=== PATIENT | male | born 1945 | race Caucasian/White ===

== ENCOUNTER 2016-11-07 06:35 | Day surgery (SDC) | payer MEDICARE, OTHER ==
[~2016-11-07 06:35] MED LIST: Buffered Lidocaine 0.9% SYRIN* 5 ML/SYR SYRINGE INTRADERM ONE; Sodium Citrate/Citric Acid* 15 ML UDC PO ONE
[2016-11-07] MEDS ORDERED: ceFAZolin 2 GM PREMIX (*) 50 ML IVPB ONE (06:49)
[2016-11-07] MEDS ORDERED: Sodium Citrate/Citric Acid* 15 ML UDC ONE (07:05)
[2016-11-07] MEDS ORDERED: Bupivacaine 0.25% EPI 200,000* 30 ML SDV ONE (07:17)
[2016-11-07] MEDS ORDERED: Bupivacaine 0.25% SDV* 30 ML ONE (07:17)
[2016-11-07] MEDS ORDERED: Propofol* 10 MG/ML 20 ML BTL IV PUSH ONE (07:32)
[2016-11-07] MEDS ORDERED: Lidocaine 2% PF * 5 ML VIAL ONE (07:32)
[2016-11-07] MEDS ORDERED: fentaNYL* 50 MCG/ML 2 ML VIAL (100 MCG VIAL) ONE (07:33)
[2016-11-07] MEDS ORDERED: Ondansetron INJ* 2 MG/ML VIAL IV PRN (07:34)
[2016-11-07] MEDS ORDERED: fentaNYL* 50 MCG/ML 2 ML VIAL (100 MCG VIAL) IV PRN (07:34)
[2016-11-07] MEDS ORDERED: Ketorolac INJ* 30 MG/ML 1 ML VIAL IV PRN (07:34)
[2016-11-07] MEDS ORDERED: EPHEDrine (Pressors)* 50 MG/ML VIAL ONE (08:36)
[2016-11-07] MEDS ORDERED: methylPREDNISolone ACETATE 80* 80 MG/ML 1 ML VIAL ONE (08:43)
[2016-11-07 09:45] VITALS: BP 125/77
--- NOTE | 2016-11-07 15:39 | OP ---
DATE OF OPERATION: 11/07/16 - [facility] DATE OF : 49. SURGEON: Dada Campa MD. ASSISTANTS: NIDA Shabazz. Clinical Rn Manager was needed for the entirety of the case to help with positioning, retraction, and was utilized throughout all portions of the case. ANESTHESIOLOGIST: Dr. Dove. ANESTHESIA: General. PRE-OP DIAGNOSIS: Left knee medial meniscus tear. POST-OP DIAGNOSIS: Left knee medial meniscus tear as well as lateral meniscus tear and synovitis anteriorly, medially, and laterally. OPERATIVE PROCEDURE: Left knee arthroscopy with: 1. Partial medial meniscectomy. cpt 14927 2. Partial lateral meniscectomy. cpt 91656 3. Medial femoral condyle chondroplasty. cpt 84175 4. Synovectomy with plica excision of the anteromedial and anterolateral compartments.cpt 79693 5. Intraarticular injection of 80 mg of Depo-Medrol. COMPLICATIONS: None. ESTIMATED BLOOD LOSS: Minimal. INDICATIONS: Jones Hoang is a 71-year-old gentleman who has had left knee pain for several months. He has failed conservative management including physical therapy and injection. He had an MRI recently that demonstrated a displaced medial meniscus tear. After extensive discussion of the risks and benefits of operative versus nonoperative treatment and having inability of returning to his activities of daily living, he elected to proceed with knee arthroscopy with meniscus surgery. Risks and benefits were discussed at length and included, but are not limited to bleeding, infection, damage to nerves, vessels, surrounding structures, wound nonhealing, persistent pain, need for further surgery, risk of anesthesia, scarring, persistent pain, stiffness, incomplete relief of symptoms, need for further surgery, risk of DVT, and risk of anesthesia. DESCRIPTION OF PROCEDURE: The patient was greeted in the preoperative area by the attending surgeon. The correct extremity was marked and consent was confirmed. The patient was brought back to the operative suite where he was placed in supine position on operating table. He then underwent general anesthesia with LMA intubation and an unsterile tourniquet was placed high on the proximal thigh. The lateral post was positioned. The left leg was then prepped and draped in usual sterile fashion beginning with chlorhexidine soap scrub, and alcohol wipe, and a final prep with ChloraPrep. After appropriate surgical pause indicating side, site, procedure, and administration of antibiotics, the standard abigail-lateral portal was made sharply with an 11 blade. The scope was introduced through the joint. The joint was examined. There was abundant hyperemia and erythematous tissue present. There was plicae along the medial aspect as well as laterally; they were very hyperemic. The patellofemoral joint had grade 0 to 1 changes with no unstable flaps. The medial femoral condyle had small areas of grade 1 to 2 changes with small areas of mild fraying. The scope was brought into the notch. The ACL and PCL were visualized and had abundant erythema and inflammation. The electrocautery device was used to help perform a synovectomy of the medial and lateral compartments. Once the excess synovium was removed, attention was directed to the medial compartment. There was again a small area of grade 1 to 2 changes, but the vast majority of the medial femoral condyle had grade 1 changes. Medial tibial plateau had grade 1 changes. There was an unstable parrot beak tear of the medial meniscus apparent that was unstable. This was then debrided back using biters and iona with care try to protect the medial femoral condyle cartilage. Once this was removed, attention was directed to the lateral compartment where there was mild fraying of the body of the meniscus. This was debrided back using the shaver. The lateral femoral condyle had grade 1 changes to the plateau and lateral femoral condyle. The knee was then placed in full extension. The remainder of the synovectomy was done even changing portals, so that there was less friction in the lateral femoral condyles. The shaving device as well as electrocautery device was used to remove the excess bands of soft tissue. Electrocautery was used to obtain hemostasis. All fluid and debris was removed from the knee. The knee was cycled several times and thoroughly lavaged. Final images were obtained. The wounds were then closed with 3-0 nylon. Sterile dressings were applied, 80 mg of Depo-Medrol and 30 mL of 0.25% of Marcaine plain was then injected intraarticularly into the knee. A Cryo/Cuff was placed. He was awoken from anesthesia and transferred to PACU in stable condition. POSTOPERATIVE PLAN: He will be weightbearing as tolerated. He will be allowed to work on range of motion immediately. He will be discharged on pain medication. He is unable to take antiinflammatories due to his GERD and so we will monitor him closely. I will see him back in 10 to 14 days. [id number]/[facility] #: [id number] [facility]
== END 2016-11-07 09:57 | disposition home or self-care (01) ==
LOC: OREAST 06:35
PROVIDERS: ATTEND Orthopaedic Surgery
DX: M23.204 Derangement of unspecified medial meniscus due to old tear or injury, left knee (principal); M23.201 Derangement of unspecified lateral meniscus due to old tear or injury, left knee; M65.852 Other synovitis and tenosynovitis, left thigh; Z85.46 Personal history of malignant neoplasm of prostate; I10 Essential (primary) hypertension; M19.90 Unspecified osteoarthritis, unspecified site
CPT/HCPCS: A9270-GY; J0690; J1040; J2704; J3010

== ENCOUNTER 2017-05-18 06:21 | Inpatient (IN) | payer MEDICARE ==
--- NOTE | 2017-05-15 03:56 | HP ---
HISTORY AND PHYSICAL: DATE OF ADMISSION: 05/18/17 DATE OF SURGERY: 05/18/17 DATE OF H AND P: 05/12/17 SURGEON: Angi Denton MD * (dictated by NIDA Lopez) PROCEDURE: Left total knee replacement. CHIEF COMPLAINT: Left knee pain. HISTORY OF PRESENT ILLNESS: Mr. Hoang is a 71-year-old gentleman with over 6 months of severe left knee pain. Six months ago, he underwent an arthroscopy with Dr. Campa for a meniscal tear and did well for a few weeks before developing increasing medial joint pain. He did have an MRI at his last visit, which showed a large osteochondral defect of the medial femoral condyle. This was discussed in his last appointment, it is concerning that the joint line breakdown rapidly over the next 6 to 12 months. The patient is also unhappy with this current quality of life and chronic pain with chronic swelling and inability to participate in his hobbies and usual activities. He has failed conservative treatment with anti- inflammatories, pain medications, intra- articular injection, and physical therapy and would like to proceed with a left total knee replacement and presents today for an H and P of the same. He did have preoperative clearance from his primary care physician. He is also having a stress test with his personal carer, Dr. Vallecillo, on 05/15/17 prior to his surgery and will be seen on 05/16/17 by cardiology to discuss the results. PAST MEDICAL HISTORY: Significant for left knee arthritis and osteochondritis, left knee osteoarthritis, abnormal EKG history, spinal stenosis of the lumbar spine, hypertension, cardiomyopathy, prostate cancer, left bundle branch block. He denies any history of DVT or PE. PAST SURGICAL HISTORY: Significant for prostate surgery in 2002, lumbar spine surgery in 2015, left knee arthroscopy in October 2016. MEDICATIONS: He is currently taking metoprolol 50 mg daily losartan 15 mg daily. ALLERGIES: 1. LISINOPRIL. 2. ALTACE. FAMILY MEDICAL HISTORY: Significant for a brother with lung cancer and a sister with brain cancer. Father with prostate cancer and mother with a stroke. SOCIAL HISTORY: The patient lives with his . 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 He denies any tobacco or recreational drug use. He drinks about 4 alcoholic beverages per week. He is normally very active and likes to play golf. He is right-hand dominant. REVIEW OF SYSTEMS: Positive for his presenting complaint. It is negative for fevers, chills, chest pain, shortness of breath, nausea, vomiting, headache, dizziness as well as urinary urgency, palpitations. A 14-point review of systems was negative. PHYSICAL EXAMINATION GENERAL: The patient is a well-nourished, well-developed male, in no acute distress. Alert and oriented x3 with pleasant mood and normal affect. He has an antalgic gait favoring the left knee. VITAL SIGNS: Height 72 inches, pulse 62, blood pressure 138/82, respirations 16 , temperature 97.5. Pain level 4/10. HEENT: Normocephalic, atraumatic. Pupils are equally round and reactive to light and accommodation. Extraocular movements are intact. NECK: Supple. No palpable cervical lymph nodes. Thyroid is smooth and nontender. PULMONARY: Lungs clear to auscultation bilaterally with no wheezes, rales, or rhonchi. CARDIAC: Regular rate and rhythm. I did not appreciate any murmurs, rubs, or gallops. He had no pedal edema. 2+ DP pulses bilaterally. EXTREMITIES: Left lower extremity, the patient's skin is intact. No abrasions or open wound. Moderate effusion at the knee joint. Tenderness along the medial joint line of the knee. No varus or valgus pain or instability. Range of motion is from 10 to 120 degrees of flexion. Negative Elle, 5/5 ankle dorsiflexion and plantar flexion strength. Full sensation to light touch in all nerve distributions, 2+ palpable DP pulse. STUDIES: No new studies were collected today. Previous x-ray showed degenerative changes with some joint space narrowing. Subchondral sclerosis and mildly evident OCD along the medial femoral condyle, degenerative changes in the medial and patellofemoral compartments. The MRI again showed an OCD to the effect of the medial femoral condyle. Medial joint space and patellofemoral joint space showed degenerative changes. IMPRESSION: Mr. Hoang is a 71-year-old gentleman with medial femoral condyle OCD lesion as well as medial joint space and patellofemoral joint space narrowing. He is an appropriate candidate for a left total knee arthroplasty. PLAN: Mr. Hoang is scheduled to undergo left total knee arthroplasty with Dr. Denton on 05/18/17. He will return to clinic in about 10 days postop for followup and suture removal. He will use Coumadin for DVT prophylaxis. Prescription for pain management will be prescribed prior to discharge from hospital and I-STOP will be checked prior to sending script. NIDA LOPEZ [id number]/[facility] #: [id number] [place]
--- NOTE | 2017-05-15 09:29 | HP ---
H&P (Free Text) History and Physical: Addendum to H&P by Emily Maldonado PA-C from 05/12/17. Dr. Stahl stated that due to scar tissue from previous prostate surgery, Dr. Stahl would start the washington catheter. Jones will have washington catheter placement by Dr. Stahl in the OR prior to left TKA on 05/18/17.
[~2017-05-18 06:21] MED LIST changes: +Acetaminophen IV 1GM/100ML * 1,000 MG/100 ML VIAL IVPB ONE; +Famotidine IV* 10 MG/ML 2 ML (20 mg) IV ONE; +Gabapentin CAP(*) 300 MG PO ONE; +Ketorolac INJ* 30 MG/ML 1 ML VIAL IV ONE; +Metoclopramide TAB* 10 MG PO ONE; -Sodium Citrate/Citric Acid* 15 ML UDC PO ONE
[2017-05-18] MEDS ORDERED: Famotidine IV* 10 MG/ML 2 ML (20 mg) ONE (06:26)
[2017-05-18] MEDS ORDERED: Gabapentin CAP(*) 300 MG ONE (06:26)
[2017-05-18] MEDS ORDERED: Metoclopramide TAB* 10 MG ONE (06:27)
[2017-05-18] MEDS ORDERED: ceFAZolin 2 GM in 100 MLS NS (*) BAG IVPB ONE (06:27)
[2017-05-18] MEDS ORDERED: Ketorolac INJ* 30 MG/ML 1 ML VIAL ONE ×2 (06:27→06:37)
[2017-05-18] MEDS ORDERED: Buffered Lidocaine 0.9% SYRIN* 5 ML/SYR SYRINGE ONE (06:27)
[2017-05-18] MEDS ORDERED: Acetaminophen IV 1GM/100ML * 100 ML ONE (06:31)
[2017-05-18] MEDS ORDERED: fentaNYL* 50 MCG/ML 2 ML VIAL (100 MCG VIAL) ONE ×2 (06:37→07:21)
[2017-05-18] MEDS ORDERED: ROPIVACAINE 5 MG/ML 30 ML BTL (0.5%) ONE (06:37)
[2017-05-18] MEDS ORDERED: Midazolam* 1 MG/ML 10 ML VIAL (10 MG) ONE (06:37)
[2017-05-18] MEDS ORDERED: Propofol* 10 MG/ML 20 ML BTL IV PUSH ONE (06:37)
[2017-05-18] MEDS ORDERED: Lidocaine 2% PF * 5 ML VIAL ONE (06:37)
[2017-05-18] MEDS ORDERED: KETAMINE HCL* 50 MG/ML 10 ML VIAL ONE (06:37)
[2017-05-18] MEDS ORDERED: Ondansetron INJ* 2 MG/ML VIAL ONE (06:37)
[2017-05-18] MEDS ORDERED: Dexamethasone IV* 4 MG/ML 1 ML (4 MG) ONE (06:37)
[2017-05-18] MEDS ORDERED: Lidocaine 2% JELLY* 20 ML (for OR use) ONE (07:09)
[2017-05-18] MEDS ORDERED: Midazolam* 1 MG/ML 2 ML VIAL (2 MG) ONE (07:21)
[2017-05-18] MEDS ORDERED: Bupivacaine 0.5% SDV PF* 10-30ML VIAL ONE (07:37)
[2017-05-18] MEDS ORDERED: EPHEDrine (Pressors)* 50 MG/ML VIAL ONE (08:08)
[2017-05-18] MEDS ORDERED: HYDROmorphone INJ* 1 MG/ML CARPUJECT SYRINGE IV PRN (09:06)
[2017-05-18] MEDS ORDERED: DiMENhydriNATE IV* 50 MG/ML VIAL IV PUSH PRN (09:06)
[2017-05-18] MEDS ORDERED: Ondansetron INJ* 2 MG/ML VIAL IV PRN ×2 (09:06→09:34)
[2017-05-18] MEDS ORDERED: Naloxone* 0.4 MG/ML 1 ML VIAL IV PRN (09:06)
[2017-05-18] MEDS ORDERED: fentaNYL* 50 MCG/ML 2 ML VIAL (100 MCG VIAL) IV PRN (09:06)
[2017-05-18] MEDS ORDERED: oxyCODONE/Acetamin 5/325 MG* TAB PO PRN (09:34)
[2017-05-18] MEDS ORDERED: Magnesium Hydroxide LIQ* 30 ML UDC PO PRN (09:34)
[2017-05-18] MEDS ORDERED: Cyclobenzaprine TAB* 10 MG PO PRN (09:34)
[2017-05-18] MEDS ORDERED: Morphine INJ* 2 MG/ML 1 ML CARPUJECT IV PRN (09:34)
[2017-05-18] MEDS ORDERED: Bisacodyl SUPP* 10 MG SUPP PR PRN (09:34)
[2017-05-18] MEDS ORDERED: diPHENhydraMINE PO* 25 MG PO PRN (09:34)
[2017-05-18] MEDS ORDERED: Phenylephrine INJ* 10 MG/ML 1 ML VIAL (10 MG) ONE (09:44)
[2017-05-18] MEDS ORDERED: HYDROmorphone INJ* 1 MG/ML CARPUJECT SYRINGE ONE (10:12)
[2017-05-18] MEDS ORDERED: Metoprolol Tartrate IV* 1 MG/ML 5 ML VIAL IV ONE ×2 (12:48→13:13)
[2017-05-18] MEDS ORDERED: Heparin DRIP 25,000 UNITS(*) 25,000 UNITS/500 ML BAG IVPB SCH (13:15)
--- NOTE | 2017-05-18 13:15 | RAD ---
HISTORY: Status post left knee arthroplasty COMPARISONS: January 06, 2017 VIEWS: 2, Frontal and lateral views of the left knee FINDINGS: BONE DENSITY: Normal. BONES: The patient is status post left knee arthroplasty. There is no appreciable hardware failure or osteolysis. JOINTS: The patient is status post left knee arthroplasty. ALIGNMENT: There is no dislocation. SOFT TISSUES: There is post surgical change to the soft tissue. OTHER FINDINGS: None. IMPRESSION: STATUS POST LEFT KNEE ARTHROPLASTY
[2017-05-18 13:31] LABS: ABS Basophils 0 10^3/ul (0-0.2); ABS Eosinophils 0 10^3/ul (0-0.6); ABS Lymphocytes 0.8 10^3/ul (1.0-4.8); ABS Monocytes 0.1 10^3/ul (0-0.8); ABS Neutrophils 7.6 10^3/ul (1.5-7.7); ABS Nucleated RBC 0 10^3/ul; Eosinophil % 0.1 % (0-6); Hematocrit 49 % (42-52); Hemoglobin 16.9 g/dl (14.0-18.0); Lymphocyte % 9.1 % (25-47); Mean Corpuscular HGB Conc 34 g/dl (31-36); Mean Corpuscular Hemoglobin 32 pg (27-31); Mean Corpuscular Volume 93 fL (80-94); Mean Platelet Volume 8 um3 (7.4-10.4); Nucleated Red Blood Cells % 0.1; Platelet Count 183 10^3/ul (150-450); Red Blood Count 5.29 10^6/ul (4.0-5.4); Red Cell Distribution Width 13 % (10.5-15); White Blood Count 8.5 10^3/ul (3.5-10.8)
[2017-05-18 13:45] LABS: EGFR Non-African American 74.1 (>60)
[2017-05-18] MEDS ORDERED: Esmolol 10 MG/ML IVPREMIX* 2,500 MG/250 ML BAG IVPB SCH (14:00)
[2017-05-18] MEDS ORDERED: Heparin VIAL(*) 5000 UNITS/ML VIAL (FIVE THOUSAND) IV SCH (14:00)
[2017-05-18] MEDS ORDERED: Magnesium Sulfate 1 GM IV* 1 GM/100 ML BAG IV ONE (14:53)
[2017-05-18] MEDS ORDERED: Acetaminophen TAB* 325 MG PO PRN (15:30)
[2017-05-18] MEDS ORDERED: Warfarin TAB(*) 6 MG PO ONE (17:00)
[2017-05-18] MEDS: ceFAZolin 1 GM ADVAN(*) 1 GM in NS 0.9% 50 ML* 50 ML IVPB SCH (21:10)
[2017-05-18] MEDS: Docusate CAP* 100 MG PO SCH (21:14)
[2017-05-18] MEDS: Magnesium Hydroxide LIQ* 30 ML UDC PO SCH (21:14)
--- NOTE | 2017-05-18 23:53 | CONS ---
CC: Angi Denton MD; Sobia Armstrong NP * CARDIOLOGY CONSULTATION: DATE OF CONSULTATION: 05/18/17 REFERRAL PHYSICIAN: Mr. Quang Avendaño and Dr. Cierra Whelan. REASON FOR CARDIOLOGY CONSULTATION: New-onset atrial fibrillation noted postoperatively from left knee replacement earlier today. HISTORY OF PRESENT ILLNESS: The patient is known to me with a history of mild- to- moderate nonischemic cardiomyopathy. Today, apparently he went into rapid atrial fibrillation following his left knee replacement. The case was discussed by myself with the hospitalist service and we began him on esmolol drip with titration to keep heart rate less than 100. The patient has now converted back to sinus rhythm and I am seeing him approximately less than 6 hours since his surgery. The patient is still recovering from general anesthesia, but is alert enough that he can tell me he does not have any chest pain and that his breathing feels well. Interestingly enough, he has noted some palpitations at night in the past, but they seemed to occur when he drinks cold liquids and he has not had any palpitations at night for 2 to 3 months. It sounds to me like when he recovered from anesthesia, he was back in sinus rhythm. PAST CARDIAC HISTORY: Includes nonischemic cardiomyopathy. We admitted the patient with a history of left bundle branch block. His last echocardiogram completed 05/03/17 showed normal left ventricular size with [id number]-ro-[id number] depressed left ventricular ejection fraction of 40% to 45% with impaired diastolic relaxation, mild concentric left ventricular hypertrophy, mild-to- moderate global hypokinesis, mild right atrial enlargement, functionally benign heart valves, and mildly dilated ascending aorta. When compared to prior echocardiogram completed 08/22/16, there is no significant change. He completed a cardiac chemical nuclear stress test 05/15/17, which was abnormal. While it showed no evidence of ischemia, no infarct, convincing evidence of infarction, there was omud-al-qagshqdanc depressed left ventricular function again seen at 40% to 45%, felt to be an intermediate risk study not significantly changed from prior cardiac chemical nuclear stress test, . He has a history of chronic left bundle branch block, osteochondritis, dissecans plica syndrome, his left knee status post replacement earlier today with OA, synovial cyst, spinal stenosis, chest and cardiomyopathy in the past. The patient states he no longer has hypertension. The patient does have a history of hypertension. PAST MEDICAL HISTORY: The patient denies history of stroke, congestive heart failure, diabetes. He does have a history of hypertension, now treated, and his age is 71. No history of vascular surgery. CHADs-VASc score is +2. OUTPATIENT MEDICATIONS: 1. Cozaar 50 mg once a day. 2. Toprol XL 50 mg once a day. ALLERGIES TO MEDICATIONS: LISINOPRIL and ALTACE. He denies shrimp, sea food, or dye allergies. FAMILY HISTORY: Unable to obtain as the patient is recovering from anesthesia. SOCIAL HISTORY: Unable to obtain as the patient is recovering from anesthesia. REVIEW OF SYSTEMS: Unable to obtain as the patient is recovering from anesthesia. PHYSICAL EXAMINATION: The patient's height 6 feet, weight 198 pounds. Blood pressure 118/76. Pulse is currently 82, had previously been 131 when he was in rapid atrial fibrillation, temperature 97.1 degrees Fahrenheit, O2 saturation 97 %. On general exam, he is pleasant gentleman in no acute distress at rest, recovering from anesthesia. HEENT: Shows the cranium is normocephalic and atraumatic. He has dry mucosal membranes. Neck veins are not distended. There are no carotid bruits visible. Skin warm and perfused. The affect is appropriate. He appears oriented. No significant kyphoscoliosis on back exam. Lungs: Clear to auscultation. No wheezes, no rales. Cardiac Exam: S1, S2. Regular rate. No significant murmurs, rubs or gallops. PMI is nondisplaced. Abdomen: Soft, nondistended. Appears benign. Extremities with trivial peripheral edema. Pulses appear grossly intact. DIAGNOSTIC STUDIES/LABORATORY DATA: A 12-lead EKG reviewed from earlier today, 05/18/17 at 1231 shows atrial fibrillation at 112 beats per minute, left bundle branch block. Telemetry now clearly demonstrates sinus rhythm. He had a repeat EKG at 1455, which shows sinus rhythm with left bundle branch block and left axis deviation. Most recent echocardiogram and cardiac chemical nuclear stress test is as above. Sodium 137, potassium 4.3, chloride 105, bicarbonate 24, BUN 15, creatinine 1, ALT 25, magnesium 1.9. White blood cell count 8.5, hematocrit 49, platelet count 183. IMPRESSION: Mr. Hoang is a pleasant 71-year-old gentleman with a history of mild- to-moderate nonischemic cardiomyopathy, treated hypertension; and chronic left bundle branch block with left knee replacement earlier today with transient postoperative rapid atrial fibrillation, which has converted since the use of esmolol drip. He is feeling well at this time. I have discussed this in detail with the patient, his , Serenity, and son at the patient's bedside with the patient's verbal consent and he is in agreement with the following recommendations. RECOMMENDATIONS: 1. We will increase his baseline Toprol XL to 75 mg once a day and wean off the esmolol drip. 2. The patient will be on Coumadin for his left knee replacement for some period of time. While we acknowledge that his CHADs-VASc score strictly speaking is 2, his prior brief AF episode appears to be a discrete event with an identifiable etiology ie his LKR, so I think it is reasonable once he is off the Coumadin to simply place him on aspirin 81 mg once a day unless he would have recurrent atrial fibrillation. 3. We have again advised the patient to avoid alcohol and caffeine. Per the patient's description, he does not drink excessive amounts of alcohol, "only 1 to 2 drinks on Sundays". 4. Recommend keep magnesium greater than 2. 5. Would recommend checking baseline TSH. 6. Further management as per the hospitalist medicine service and I have discussed the case with Kateryna of the hospitalist medicine service. 7. The patient should follow up with myself in 4 to 6 weeks following discharge. Dear, Mr. Quang Avendaño, many thanks for this kind cardiovascular consultation opportunity. Please do not hesitate to contact me if you any questions or concerns in regard to the patient's cardiovascular consultative care. [id number]/[facility] #: [id number] [place]
[2017-05-19] MEDS: ceFAZolin 1 GM ADVAN(*) 1 GM in NS 0.9% 50 ML* 50 ML IVPB SCH ×3 (01:00→13:05)
[2017-05-19] MEDS: oxyCODONE TAB* 5 MG TAB PO PRN ×2 (01:57→19:24)
--- NOTE | 2017-05-19 03:55 | CONS ---
CC: Dr. Angi Denton; Sobia Armstrong NP. * CONSULTATION REPORT: DATE OF ADMISSION: 05/18/17 REQUESTING PROVIDER: Dr. Angi Denton. MY ATTENDING WHILE IN THE HOSPITAL: Dr. Almaz Reyes. PRIMARY CARE DOCTOR: Sobia Armstrong NP REASON FOR CONSULTATION: Comanagement of comorbid medical conditions. HISTORY OF PRESENT ILLNESS: Mr. Hoang is a 71-year-old male with past medical history significant for hypertension, nonischemic cardiomyopathy, osteoarthritis , left bundle-branch block and prostate cancer, who is in the hospital for a left total knee arthroplasty, which was performed on 05/18/17 with no complications. The patient having EBL of 250, general endotracheal intubation with a nerve block and had an EBL of 250. The patient is examined after he returned to floor. The patient has no complaints at this time. No chest pain, shortness of breath, dizziness, palpitations. Pain is 2/10 only in his knee. No other pain. No recent illnesses, fevers, chills, nausea, vomiting, changes in his vision, headaches. The patient has no recent exposure to anybody who is sick or anyone with the flu. The patient had a Mcknight placed by Dr. Tolu Bartlett of Urology without difficulty in the preoperative period and his note indicates it can be removed anytime. The patient had preoperative clearance through his outpatient plumbing assembler installer, Dr. Elvin Vallecillo, which had an intermediate risk, which included an echocardiogram, which showed an EF of 40% to 45%, which is consistent with previous exams and a stress test, which showed no areas of ischemia, but decreased ejection fraction is read as intermediate risk and was deemed appropriate for this surgery. The patient on his postoperative vitals was found to have a heart rate in the 110s and EKG was performed and patient was found to be in AFib for which he has no past history. PAST MEDICAL HISTORY: Cardiomyopathy, nonischemic, EF of 40% to 45%; prostate cancer, status post prostatectomy; hypertension; spinal stenosis, status post surgery; left knee arthritis and osteochondritis; left bundle-branch block. PAST SURGICAL HISTORY: Prostate surgery in 2002, lumbar spine surgery in 2015, left knee arthroscopy in October 2016. MEDICATIONS: 1. Toprol 50 mg p.o. daily. 2. Losartan 50 mg p.o. daily. 3. Tylenol 500 mg p.o. daily as needed for pain. ALLERGIES: LISINOPRIL, RAMIPRIL. FAMILY HISTORY: The patient has no family history of atrial fibrillation. The patient's family history is significant for brother with lung cancer and sister with brain cancer when they were young. The patient's father had prostate cancer and of complications of this and his mother had a stroke. SOCIAL HISTORY: The patient lives with his . The patient denies tobacco or recreational drug use. He drinks 4 alcoholic beverages a week. He is active. 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 His healthcare proxy would be his [employer]. REVIEW OF SYSTEMS: A 14-point review of systems was reviewed and is negative except as above. PHYSICAL EXAM: General: The patient is a 71-year-old male who appears stated age and sitting comfortably on bed in no acute distress. Vital Signs: Temperature 97.9, pulse rate 123, respiratory rate 16, oxygen saturation 98% on 3 L, blood pressure 120/85. HEENT: Head: Normocephalic, atraumatic. Sclerae anicteric. No conjunctival injection. Nasal mucosa moist. Oral mucosa moist. There is pallor of the oral mucosa. No pharyngeal erythema, discharge, or exudate. Neck: Supple, nontender. No lymphadenopathy. No carotid bruit auscultated. No JVD. Cardiac: Irregularly irregular rhythm, rate 110. No clicks, murmurs, gallops, or rubs. Pulses are 2+ in bilateral dorsalis pedis, posterior tibialis, and radial areas. No lower extremity edema noted. Respiratory: Clear to auscultation bilaterally. No wheezes, rales, or rhonchi. Good air exchange bilaterally. Abdomen: Soft, nontender, and nondistended. Bowel sounds present and normoactive in all 4 quadrants. No hepatosplenomegaly. No abdominal bruits auscultated. Genitourinary: The patient has a Mcknight catheter draining dark lul clear urine. No CVA tenderness. Skin: Clean, dry, and intact. No rash. The patient's surgical incision on his left knee is covered by a bulky dressing. The patient's left leg is colder than his right. Neuro: Cranial nerves II through XII intact. No numbness or tingling in the hands or feet. No focal deficits. Alert and oriented x3. Psychiatric: Pleasant and cooperative. PREOPERATIVE LABORATORY DATA: White blood cell count 7.6, hemoglobin 18.2, hematocrit 52%, MCH 32, MCV 93, platelet count 218. INR 0.92, APTT 31.5. Sodium 141, potassium 4.3, chloride 103, carbon dioxide 31, anion gap 7, BUN 16 , creatinine 1.08, glucose 99, hemoglobin A1c 5.5, calcium 9.8. Total bilirubin 0.6, AST 18, ALT 23, alkaline phosphatase 54, total protein 6.6, albumin 4.3, globulin 2.3. Triglycerides 173, cholesterol 177, LDL cholesterol 96, HDL 46.8. PSA 0.4. TSH 2.3. Of note, the hemoglobin A1c and lipid panel are not up-to-date. DIAGNOSTIC STUDIES: Knee x-ray is an intraoperative test film. Electrocardiogram shows left bundle-branch block consistent with previous exams. Anterior ST segments are uninterpretable. Irregularly irregular rhythm. No P waves present. This is significantly different from his test strip , which was obtained at the post acute care unit. QTc of 522. ASSESSMENT AND PLAN: Impression: Mr. Hoang is a 71-year-old male with past medical history significant for non- ischemic cardiomyopathy, hypertension, who is status post total left knee arthroplasty, who was found to be in atrial fibrillation with a rapid rate after surgery. This case was discussed with patient's plumbing assembler installer, Dr. Elvin Vallecillo, who is on-call today and he suggested that he be in the intensive care unit with an esmolol drip and a heparin drip which was cleared by Dr. Denton of Orthopedics. 1. Atrial fibrillation with rapid ventricular rate. We will treat with metoprolol 5 mg IV up to 3 doses at least 5 minutes apart at this time monitoring for hemodynamic instability. The patient is currently asymptomatic making it possible to note if patient has been in and out of atrial fibrillation if preoperatively. This case has been discussed with Dr. Elvin Vallecillo who will see the patient and consider cardioversion in the morning. The patient will be started on a heparin drip, which has been okayed by his orthopedist, Dr. Denton. The patient was started on esmolol drip without boluses due to metoprolol infusions. The patient will be monitored in the intensive care unit for hypotension. We will repeat EKG in the morning to assess for spontaneous cardioversion, if not, the patient may be cardioverted at the discretion of Cardiology. The plan was for patient to be started on warfarin for postoperative DVT prophylaxis. Patient will be started on a heparin drip at this time which has been approved by his surgeon. Warfarin will be continued at this time whether or not patient remains in atrial fibrillation , his CHADS2 VASc score is 3, and he warrants therapeutic anti-coagulation and should be anticoagulated for his knee surgery anyway. Whether or not to continue this anticoagulation will be left to the discretion of his outpatient plumbing assembler installer and primary care provider. 2. History of prostate cancer. The patient had a Mcknight inserted preoperatively with Dr. Tolu Bartlett, which is producing clear urine without blood. Dr. Bartlett indicated this Mcknight can be removed anytime postoperatively. The patient had a PSA, which was within normal limits preoperatively. 3. Status post total left knee arthroplasty. The patient's pain is well controlled at this time. The patient had bowel movement. The patient denies abdominal pain. The patient is not passing flatus. The patient has the Mcknight inserted. Management per primary team. 4. Hypertension. We will hold patient's metoprolol and lisinopril while he is on the esmolol drip and we will monitor vital signs closely for hypotension. We will continue fluids per Surgery at 100 mL an hour. 5. Non-Ischemic Cardiomyopathy. This is stable and believed to be related to hypertension. Monitor strict I/O and Daily Weights. 5. FEN: The patient will have a heart-healthy diet. The patient will be n.p.o. after midnight for possible cardioversion in the morning. 6. DVT prophylaxis: The patient will be on heparin drip and we will start warfarin as per Ortho. 7. Disposition: The patient will be transferred to the ICU. TIME SPENT: Approximately 90 minutes was spent on this consultation, 30 of which was spent [id number] with the patient obtaining history and physical and discussing treatment plan. This plan has been discussed with my attending, Dr. Almaz Reyes, and she is in agreement. NIDA REYES [id number]/[facility] #: [id number] [facility]
[2017-05-19 05:23] LABS: Hematocrit 42 % (42-52); Hemoglobin 14.5 g/dl (14.0-18.0); Mean Platelet Volume 8 um3 (7.4-10.4); Platelet Count 199 10^3/ul (150-450)
[2017-05-19 05:29] LABS: INR 0.97 (0.77-1.02)
[2017-05-19 05:39] LABS: EGFR Non-African American 74.1 (>60)
--- NOTE | 2017-05-19 07:38 | PN ---
Progress Note - Progress Note Date of Service: 05/19/17 SOAP: Subjective: Pt. is alert, denies chest pain or palpitations. L knee pain moderate. Objective: LLE - drain removed, tip intact with 300 cc ss drainage. Dressing c/d/i. distally nvi. Vital Signs: Temp Pulse Resp BP Pulse Ox 99.1 F 60 20 109/67 95 05/19/17 04:00 05/19/17 06:00 05/19/17 06:00 05/19/17 06:00 05/19/17 06:00 Laboratory Results - last 24 hr 05/18/17 05/18/17 05/18/17 13:20 13:20 13:20 WBC 8.5 RBC 5.29 Hgb 16.9 Hct 49 MCV 93 MCH 32 H MCHC 34 RDW 13 Plt Count 183 MPV 8 Neut % (Auto) 89.5 H Lymph % (Auto) 9.1 L Winston % (Auto) 1.1 Eos % (Auto) 0.1 Baso % (Auto) 0.2 Absolute Neuts (auto) 7.6 Absolute Lymphs (auto) 0.8 L Absolute Monos (auto) 0.1 Absolute Eos (auto) 0 Absolute Basos (auto) 0 Absolute Nucleated RBC 0 Nucleated RBC % 0.1 INR (Anticoag Therapy) APTT 31.3 Sodium 137 Potassium 4.3 Chloride 105 Carbon Dioxide 24 Anion Gap 8 BUN 15 Creatinine 1.00 Est GFR ( Amer) 95.3 Est GFR (Non-Af Amer) 74.1 BUN/Creatinine Ratio 15.0 Glucose 194 H Calcium 8.9 Magnesium 1.9 Total Bilirubin 0.50 AST 20 ALT 25 Alkaline Phosphatase 54 Total Protein 6.3 L Albumin 3.8 Globulin 2.5 Albumin/Globulin Ratio 1.5 TSH Cancelled 05/19/17 05/19/17 05/19/17 05:09 05:09 05:09 WBC RBC Hgb 14.5 Hct 42 MCV MCH MCHC RDW Plt Count 199 MPV 8 Neut % (Auto) Lymph % (Auto) Winston % (Auto) Eos % (Auto) Baso % (Auto) Absolute Neuts (auto) Absolute Lymphs (auto) Absolute Monos (auto) Absolute Eos (auto) Absolute Basos (auto) Absolute Nucleated RBC Nucleated RBC % INR (Anticoag Therapy) 0.97 APTT Sodium 137 Potassium 4.8 Chloride 106 Carbon Dioxide 27 Anion Gap 4 BUN 15 Creatinine 1.00 Est GFR ( Amer) 95.3 Est GFR (Non-Af Amer) 74.1 BUN/Creatinine Ratio 15.0 Glucose 139 H Calcium 8.7 Magnesium 2.0 Total Bilirubin AST ALT Alkaline Phosphatase Total Protein Albumin Globulin Albumin/Globulin Ratio TSH Assessment: 71 yo M pod 1 s/p LTKA with new onset afib immediately postop Plan: Appreciate hospitalist and cardiology guidance/consult Will continue coumadin with lovenox bridge Plan transfer to [facility] today if rate is sinus and drips are d/c'ed PT/OT 10 mg coumadin tonight, lovenox today
[2017-05-19] MEDS: Vitamin THERAPEUTIC TAB PO SCH (08:02)
[2017-05-19] MEDS: Enoxaparin(*) 40 MG/0.4 ML SYR SUBCUT SCH (08:02)
[2017-05-19] MEDS: Docusate CAP* 100 MG PO SCH ×2 (08:02→19:24)
[2017-05-19] MEDS: Magnesium Hydroxide LIQ* 30 ML UDC PO SCH ×2 (08:02→19:39)
[2017-05-19] MEDS: Metoprolol Succinate XL TAB* 50 MG PO SCH (08:03)
[2017-05-19] MEDS ORDERED: Metoprolol Succinate XL TAB* 50 MG PO SCH (09:00)
[2017-05-19] MEDS ORDERED: NON FORMULARY MED* (Losartan Potassium [Cozaar] 50 MG) PO SCH (09:00)
[2017-05-19] MEDS ORDERED: Enoxaparin(*) 30 MG/0.3 ML SYR SUBCUT SCH (09:00)
--- NOTE | 2017-05-19 11:39 | PN ---
Subjective Date of Service: 05/19/17 Interval History: Pt feels well, no more A. fib on telem. Left knee is "sore" Objective Active Medications: Acetaminophen (Tylenol Tab*) 650 mg PO Q4H PRN PRN Reason: PAIN OR TEMPERATURE Last Admin: 05/19/17 00:52 Dose: 650 mg Bisacodyl (Dulcolax Supp*) 10 mg NH DAILY PRN PRN Reason: constipation Cyclobenzaprine HCl (Flexeril Tab*) 10 mg PO TID PRN PRN Reason: SPASMS Diphenhydramine HCl (Benadryl Po*) 25 mg PO Q6H PRN PRN Reason: itching Docusate Sodium (Colace Cap*) 100 mg PO BID [facility] Last Admin: 05/19/17 08:02 Dose: 100 mg Enoxaparin Sodium (Lovenox(*)) 40 mg SUBCUT Q24H [facility] Last Admin: 05/19/17 08:02 Dose: 40 mg Lactated Ringer's (Lactated Ringers 1000 Ml Bag*) 1,000 mls @ 100 mls/hr IV PER RATE [facility] Last Admin: 05/19/17 00:30 Dose: 100 mls/hr Esmolol HCl (Brevibloc 10 Mg/Ml Ivpremix*) 2,500 mg in 250 mls @ 0 mls/hr IVPB .PER PARAMETERS CORINNA; Per Protocol PRN Reason: Protocol Last Admin: 05/18/17 14:12 Dose: 27 mls/hr Cefazolin Sodium 1 gm/ Sodium (Chloride) 50 mls @ 200 mls/hr IVPB 0500,1300, 2100 [facility] Stop: 05/19/17 13:14 Last Admin: 05/19/17 05:22 Dose: 200 mls/hr Lactulose (Lactulose*) 30 ml PO Q6H PRN PRN Reason: constipation Magnesium Hydroxide (Milk Of Magnesia Liq*) 30 ml PO BID [facility] Last Admin: 05/19/17 08:02 Dose: 30 ml Magnesium Hydroxide (Milk Of Magnesia Liq*) 30 ml PO Q6H PRN PRN Reason: constipation Metoprolol Succinate (Toprol Xl Tab*) 75 mg PO DAILY [facility] Last Admin: 05/19/17 08:03 Dose: 75 mg Multivitamins (Theragran Tab*) 1 tab PO DAILY [facility] Last Admin: 05/19/17 08:02 Dose: 1 tab Ondansetron HCl (Zofran Inj*) 4 mg IV Q6H PRN PRN Reason: nausea Oxycodone HCl (Roxycodone Tab*) 10 mg PO Q4H PRN PRN Reason: PAIN - SEVERE Last Admin: 05/19/17 01:57 Dose: 10 mg Oxycodone/Acetaminophen (Percocet 5/325 Tab*) 2 tab PO Q4H PRN PRN Reason: PAIN - MODERATE TO SEVERE Oxycodone/Acetaminophen (Percocet 5/325 Tab*) 1 tab PO Q4H PRN PRN Reason: PAIN - MODERATE Last Admin: 05/19/17 08:02 Dose: 1 tab Warfarin Sodium (Coumadin Tab(*)) 10 mg PO ONCE@1700 ONE PRN Reason: Protocol Stop: 05/19/17 17:01 Vital Signs - 8 hr 05/19/17 05/19/17 05/19/17 04:00 04:23 05:00 Temperature 99.1 F Pulse Rate 63 66 Respiratory 13 16 Rate Blood Pressure 102/56 (mmHg) O2 Sat by Pulse 94 93 95 Oximetry 05/19/17 05/19/17 05/19/17 05:12 06:00 07:00 Temperature Pulse Rate 69 60 66 Respiratory 25 14 14 Rate Blood Pressure 122/76 109/67 (mmHg) O2 Sat by Pulse 96 95 97 Oximetry 05/19/17 05/19/17 05/19/17 07:52 08:00 08:02 Temperature 98.2 F Pulse Rate 68 67 Respiratory 19 17 18 Rate Blood Pressure 129/84 126/74 (mmHg) O2 Sat by Pulse 94 96 Oximetry 05/19/17 05/19/17 05/19/17 09:00 09:01 09:54 Temperature Pulse Rate 70 67 73 Respiratory 21 17 21 Rate Blood Pressure 141/84 118/63 (mmHg) O2 Sat by Pulse 94 95 94 Oximetry 05/19/17 10:00 Temperature Pulse Rate 77 Respiratory 22 Rate Blood Pressure (mmHg) O2 Sat by Pulse 92 Oximetry Oxygen Devices in Use Now: None Appearance: 71 yo M in nAD, AAOx3 Eyes: No Scleral Icterus, PERRLA Ears/Nose/Mouth/Throat: NL Teeth, Lips, Gums, Mucous Membranes Moist Neck: NL Appearance and Movements; NL JVP, Trachea Midline Respiratory: Symmetrical Chest Expansion and Respiratory Effort Cardiovascular: NL Sounds; No Murmurs; No JVD, RRR Abdominal: NL Sounds; No Tenderness; No Distention Lymphatic: No Cervical Adenopathy Extremities: No Edema, No Clubbing, Cyanosis Skin: No Nodules or Sclerosis, - - left knee in postsurgical dressings-not removed Neurological: Alert and Oriented x 3, NL Muscle Strength and Tone Result Diagrams: 05/19/17 05:09 05/19/17 05:09 Microbiology and Other Data: Microbiology 05/18/17 16:00 Nasal Screen MRSA (PCR)(MARVA) - Final Nasal Mrsa Not Detected Assess/Plan/Problems-Billing Assessment: 71 yo M with h/o cardiomyopathy, HTN, LBBB had a brief episode of post op a. fib after left knee surgery on 05/18/17 that resolved after starting Esmolol gtt. - Patient Problems (1) Atrial fibrillation Comment: transient, post op, resolved after starting Esololol gtt. appreciate cardiology consult Will cont increased Toprol cont telem monitorimg, transfer to [facility] Echo shows EF 45%-unchanged (2) HTN (hypertension) Comment: BP controlled, holding cozaar (3) Status post left knee replacement Comment: as per ortho (4) DVT prophylaxis Comment: lovenox Status and Disposition: medicine consult, will follow
[2017-05-19] MEDS: oxyCODONE/Acetamin 5/325 MG* TAB PO PRN ×2 (11:51→16:04)
--- NOTE | 2017-05-19 16:11 | OP ---
OPERATIVE REPORT: DATE OF OPERATION: 05/18/17 DATE OF : 49 SURGEON: Angi Denton MD. LOSS PREVENTION RESEARCH ENGINEER: NIDA Pires Ms. did help throughout the procedure with preparation of the leg, wound retraction and sherry pulation of the knee. ANESTHESIOLOGIST: Dr. Fry. ANESTHESIA: General with adductor nerve block. PRE-OP DIAGNOSIS: Severe end-stage degenerative osteoarthritis of the left knee joint. POST-OP DIAGNOSIS: Severe end-stage degenerative osteoarthritis of the left knee joint. OPERATIVE PROCEDURE: Left total knee arthroplasty. TOURNIQUET TIME: 61 minutes. COMPLICATIONS: None. SPECIMENS: Bone and cartilage from the left knee joint sent to Pathology. HARDWARE USED: This is cemented [employer] total knee arthroplasty hardware. Two packages of s implex bone cement were used. For the femur, a size 7 left posterior stabilized Legion Oxinium femor al component. For the tibia, a size 6 left tibial base plate Paige II. For the insert, a 9 mm Gen esis II posterior stabilized high flexion articular insert, size 5/6. For the patella a 38 mm 3-peg all poly patella. BRIEF HISTORY/INDICATION: Mr. Hoang is a 71-year-old gentleman with increasingly severe left knee pa in over the last year. He failed conservative treatment with anti-inflammatories, pain medications, physical therapy, injections and arthroscopy. At the time of arthroscopy he was noted to have the ad vanced arthritis of the medial and patellar femoral compartment. MRI also showed it to be advanced a rthritis. The patient elected to undergo left total knee arthroplasty due to continued pain and decr eased quality of life. Informed consent was obtained from the patient. He understood the risks of surgery included, but wer e not limited to bleeding, infection, damage to nearby structures, continued pain, need for further s urgery, intraoperative fracture, nerve palsy, hardware failure or loosening, knee stiffness, loss of motion, stroke, heart attack, blood clot, and . He wished to proceed. INTRAOPERATIVE FINDINGS: Intraoperatively, the patient was noted to have severe chondromalacia and l oss of cartilage in both the medial and patellofemoral compartments. DESCRIPTION OF PROCEDURE: Mr. Hoang was identified in the preanesthesia unit. His left lower extrem ity was marked as the correct operative side. Informed consent was signed and placed in the chart. The patient was taken to the operating room and placed under general anesthesia with an adductor nerv e block. A Mcknight catheter was placed by Dr. Tolu Bartlett of Urology. The patient had a tourniquet placed on the left thigh. The left lower extremity was prepped and draped in the usual sterile fashi on. Preop time-out was made to correctly identify the patient's side and site. Appropriate perioper ative antibiotics were given within 1 hour of incision. Tourniquet was inflated and total tourniquet time for this procedure was 61 minutes. A midline incis ion was made with a 10-blade and carried down to the extensor mechanism. A new 10-blade was used to make a standard medial parapatellar arthrotomy. Patella was subluxed laterally. Electrocautery was used to subperiosteally elevate soft tissue off the superomedial tibia to the mid sagittal plane. Th e femur was flexed up. The anterior horn of the lateral meniscus and ACL were sharply released. It was noted right away significant cartilage wear and loss along the medial femoral condyle. A drill w as used to enter the distal femur. Intramedullary distal femoral cutting guide was pinned on the dist al femur. Oscillating saw was used to make the appropriate distal femoral cut. Next the external rot ation guide was pinned on the distal femur and the femur was sized to a size 7. A size 7 multi-cutti ng jig was pinned on the distal femur. Oscillating saw was used to make the appropriate 4 chamfer cu ts. Next the PCL was completely released. The tibia was subluxed anteriorly. Extramedullary proximal tib ial cutting guide was pinned on the proximal tibia. The oscillating saw was used to the make the pro ximal tibial cut perpendicular to the mechanical axis of the tibia. The bone was carefully removed. The knee was brought out into full extension. A spacer block had excellent fit. There was good med ial and lateral ligamentous balancing. Flexion and extension gaps were well balanced. The knee was flexed up and the lamina supervisory lifeguard was placed both medially and laterally. Any remaining meniscus was carefully removed using an electrocautery. Posterior osteophytes were removed using a c urved osteotome. Tibial tray and drop dejuan confirmed satisfactory tibial cut. A size 7 left femoral trial was impacted on to the distal femur. The box for the posterior stabilize d implant was prepared using a reamer and box cut osteotome. A size 6 tibial tray trial with a 9-mm insert trial was placed and the knee was taken through a range of motion. The knee had full extensio n to 130 degrees of flexion. There was satisfactory patellofemoral tracking. The patella was everted. 9 mm of patellar bone and cartilage was carefully removed using an oscillat ing saw. There was extensive cartilage loss and chondromalacia noted. The patella was sized to a si ze 38. The pegs were drilled through the size 38 guide. The trial 38 was placed and the knee was ta angelita through range of motion. There was satisfactory patellofemoral tracking. All trials were careful ly removed. The tibia was subluxed anteriorly and sized to a size 6. Proximal tibia was prepared usi ng a size 6 keel punch. All bony cut surfaces were copiously irrigated with sterile saline and dried . Final implants were cemented into place starting with the tibia followed by the femur and last the patella. A 9-mm insert trial was placed while the knee was brought out into full extension. The to urniquet was turned down at 61 minutes. The knee was copiously irrigated with sterile saline. Electr ocautery was used to obtain meticulous hemostasis. Once the cement had fully cured, the insert trial was removed. Final insert chosen was a size 5/6, 9-mm posterior stabilized, high flexion insert; th is was locked into position on the tibial tray. Insert was checked and rechecked and noted to be sta ble. The knee was once again copiously irrigated with sterile saline. The extensor mechanism was closed o jennifer a medium Hemovac drain using interrupted #1 Vicryls. The rest of the incision was closed in a la yered fashion using 0 and 2-0 Vicryls. The skin was closed using running 3-0 nylon suture. The patient's incision was covered with Xeroform, 4x4s, and Webril. Ate wrap and cold pack were plac ed over this. The patient's anesthesia was reversed without difficulty. He was taken to the PACU in stable conditi on. Intended weightbearing will be weightbearing as tolerated. Intended DVT prophylaxis will be Coum poly with a Lovenox bridge. [id number]/[facility] #: [id number]
[2017-05-19] MEDS ORDERED: Warfarin TAB(*) 10 MG PO ONE (17:00)
[2017-05-20] MEDS: oxyCODONE/Acetamin 5/325 MG* TAB PO PRN ×3 (00:23→12:18)
[2017-05-20] MEDS: oxyCODONE TAB* 5 MG TAB PO PRN ×2 (02:57→07:54)
[2017-05-20 05:46] LABS: Hematocrit 39 % (42-52); Hemoglobin 13.6 g/dl (14.0-18.0); Mean Platelet Volume 8 um3 (7.4-10.4); Platelet Count 185 10^3/ul (150-450)
[2017-05-20 05:56] LABS: INR 1.31 (0.77-1.02)
[2017-05-20] MEDS: Vitamin THERAPEUTIC TAB PO SCH (07:53)
[2017-05-20] MEDS: Docusate CAP* 100 MG PO SCH (07:53)
[2017-05-20] MEDS: Metoprolol Succinate XL TAB* 50 MG PO SCH (07:54)
[2017-05-20] MEDS: Enoxaparin(*) 40 MG/0.4 ML SYR SUBCUT SCH (07:56)
[2017-05-20 08:07] VITALS: BP 137/66
[2017-05-20] MEDS: Magnesium Hydroxide LIQ* 30 ML UDC PO SCH (08:07)
--- NOTE | 2017-05-20 08:27 | PN ---
Progress Note - Progress Note Date of Service: 05/20/17 SOAP: Subjective: POD #2 Left TKA. Doing well. Pain controlled with meds. Denies CP/SOB, calf pain , f/c. No episodes of Afib recently. Objective: Vitals: Temp Pulse Resp BP Pulse Ox 97.8 F 86 20 137/66 96 05/20/17 07:41 05/20/17 07:41 05/20/17 07:54 05/20/17 07:41 05/20/17 07:41 Gen: A&O x3, NAD at rest sitting in chair LLE: Incision C/D/I with sutures. Mild edema and ecchymosis to knee, no hematoma. Calf soft, NT. +f/e at ankle and MTPs, N/V intact Labs: Laboratory Results - last 24 hr 05/20/18 05/20/17 05:31 05:31 Hgb 13.6 L Hct 39 L Plt Count 185 MPV 8 INR (Anticoag Therapy) 1.31 H Assessment: POD #2 Left TKA, doing well Plan: D/C home today after PT INR 1.31 today Coumadin 8mg 3/3, 8mg 3/4, VNS to redraw INR 3/5 F/U with Dr. Denton 10-14 days
--- NOTE | 2017-05-22 09:23 | DS ---
DISCHARGE SUMMARY: DATE OF ADMISSION: 05/18/17 DATE OF DISCHARGE: 05/20/17 PROVIDER: Dr. Angi Denton* (dictated by NIDA Yang). ADMITTING DIAGNOSIS: Severe end-stage osteoarthritis of the left knee. DISCHARGE DIAGNOSIS: Severe end-stage osteoarthritis of the left knee, status post left total knee arthroplasty. SECONDARY DIAGNOSES: 1. Hypertension. 2. History of prostate cancer. 3. Left bundle branch block. 4. New-onset atrial fibrillation. HISTORY OF PRESENT ILLNESS: Mr. Hoang is a 71-year-old gentleman, who has had over 6 months of severe left knee pain. He failed conservative treatment and elected to proceed with a left total knee arthroplasty. HOSPITAL COURSE: On 05/18/17, the patient was admitted to [facility] and underwent a successful left total knee arthroplasty by Dr. Denton. He recovered briefly in the postanesthesia care unit. However, in the Recovery , he was found to have atrial fibrillation with a rapid ventricular rate. The hospitalist service and Cardiology was consulted on and the patient was observed postoperatively in the intensive care unit. On postop day 1, heart rate remained regular with no further episodes of atrial fibrillation. He was then found stable to be transferred to the short stay surgical unit. His pain is controlled with oral pain medication. He was able to participate with physical therapy and he ambulates with the use of a rolling walker. On postop day 1, his H and H was 14.5 and 42. INR is 0.97 with no previous Coumadin. Mcknight catheter was removed on postop day 1 as well as Hemovac drain with no issues. On postop day 2, the patient's H and H was 13.6 and 39. INR 1.3 with 10 mg of Coumadin previously. The patient was again able to participate with physical therapy with the use of rolling walker to ambulate with minimal assistance. The pain was well controlled with oral pain medication. He was found stable for discharge home. DISCHARGE INSTRUCTION: The patient will keep his incision clean and dry until postop day 4. At that time, he may shower normally. He is understanding to avoid a bath tub, hot tub, or swimming pool, and submerging the incision. He will apply a dry dressing as needed. He will have home visiting nurse and physical therapy services for wound checks and INR draws as well as Coumadin dosing given his new onset of AFib. He will be weightbearing as tolerated with a rolling walker. He will follow up in the office 10 to [address] Denton. He is understanding to call the office with any problems or concerns. He is understanding to go directly to the emergency room with any chest pain, shortness of breath, fevers greater than 101.5, calf pain or swelling. DISCHARGE MEDICATIONS: On discharge, medications will include: 1. Percocet 5/325 one to two tabs p.o. q.4 to 6 hours p.r.n. pain. 2. Coumadin as directed. He will take 8 mg on 05/20/17. He will take an additional 8 mg on 05/21/17. He will hopefully have a repeat INR drawn on 05/22 by visiting nurse. 3. Colace 100 mg p.o. b.i.d. 4. He will resume his home medications of losartan potassium 50 mg p.o. q.a.m. 5. Metoprolol succinate XL increased to 75 mg p.o. q. day. All of his questions were answered to his full satisfaction. He is understanding to call with any problems or concerns. NIDA YANG [id number]/[facility] #: [id number] [place]
== END 2017-05-20 12:20 | disposition home health service (06) | DRG 470 ==
LOC: AA 06:21 → EDSTATUS 07:30 → SSU 12:31 → ICU 13:36 → SSU 05-19 08:46
PROVIDERS: ADMIT Orthopaedic Surgery Adult Reconstructive Orthopaedic Surgery; ATTEND Orthopaedic Surgery Adult Reconstructive Orthopaedic Surgery
PROC: 0SRD069 Replacement of Left Knee Joint with Oxidized Zirconium on Polyethylene Synthetic Substitute, Cemented, Open Approach (ICD-10-PCS; principal; 2017-05-18 08:00)
DX: M17.12 Unilateral primary osteoarthritis, left knee (principal); I42.8 Other cardiomyopathies; I48.91 Unspecified atrial fibrillation; G89.29 Other chronic pain; M93.862 Other specified osteochondropathies, left lower leg; I10 Essential (primary) hypertension; I44.7 Left bundle-branch block, unspecified; I77.819 Aortic ectasia, unspecified site; M25.762 Osteophyte, left knee; K21.9 Gastro-esophageal reflux disease without esophagitis; F41.9 Anxiety disorder, unspecified; M25.462 Effusion, left knee; M22.42 Chondromalacia patellae, left knee; Z85.46 Personal history of malignant neoplasm of prostate; Z80.1 Family history of malignant neoplasm of trachea, bronchus and lung; Z80.42 Family history of malignant neoplasm of prostate; Z80.8 Family history of malignant neoplasm of other organs or systems; Z82.3 Family history of stroke; Z72.89 Other problems related to lifestyle; Z88.8 Allergy status to other drugs, medicaments and biological substances; Z90.79 Acquired absence of other genital organ(s)
CPT/HCPCS: 36415; 80048; 80053; 83735; 85014; 85018; 85025; 85049; 85610; 85730; 87641; 88305; 88311; 93005; 94760; A9270-GY; C1776; J0690; J1100; J1170; J1650; J1885; J2250; J2405; J2704; J2795; J3010; J3475; J3490